=== PATIENT | female | born 1985 | race African-American/Black ===

== ENCOUNTER 2019-05-05 14:43 | Emergency (ER) | payer OTHER ==
[~2019-05-05] VITALS: Ht 157.5 cm; Wt 105.9 kg
[2019-05-05] MEDS ORDERED: cloNIDine HCL 0.1 MG TABLET PO ONE (15:15)
[2019-05-05] MEDS ORDERED: IBUPROFEN 600 MG TABLET. PO ONE (15:15)
[2019-05-05 15:57] VITALS: BP 127/76
--- NOTE | 2019-05-05 15:58 | PHYS DOC ---
Past History Past Medical History: Cancer, Hypertension Additional Past Medical Histor: cervical cancer in june 2018 Past Surgical History: No Surgical History Alcohol Use: None Adult General Chief Complaint Chief Complaint: HYPERTENSION HPI HPI Patient is a 33-year-old female who presents with complaint of elevated blood pressure at home. Patient also complains of headache since yesterday that she rates at a 4-5 out of 10. She denies any visual changes, photophobia, nausea or vomiting. Patient states that she used to be on blood pressure medication but stopped it about a year ago. She states that she had checked her blood pressure at home and it was in the 170s systolic. She denies any chest pain or shortness of breath.[] Review of Systems Review of Systems Constitutional: Denies fever or chills [] Respiratory: Denies cough or shortness of breath [] Cardiovascular: No additional information not addressed in HPI [] Musculoskeletal: Complains of left-sided neck pain [] Integument: Denies rash or skin lesions [] Neurologic: Complains of headache without focal weakness or sensory changes [] Current Medications Current Medications Current Medications Medications (Trade) Dose Ordered Sig/Magnolia Start Time Stop Time Status Last Admin Dose Admin Clonidine HCl (Catapres) 0.2 mg 1X ONCE 05/05/19 15:15 05/05/19 15:16 DC 05/05/19 15:15 0.2 MG Ibuprofen (Motrin) 600 mg 1X ONCE 05/05/19 15:15 05/05/19 15:16 DC 05/05/19 15:15 600 MG Allergies Allergies Allergies Coded Allergies Type Severity Reaction Last Updated Verified No Known Drug Allergies 05/05/19 No Physical Exam Physical Exam Constitutional: Well developed, well nourished, no acute distress, non-toxic appearance. [] HENT: Normocephalic, atraumatic, bilateral external ears normal, oropharynx moist, no oral exudates, nose normal. [] Cardiovascular:Heart rate regular rhythm, no murmur [] Lungs & Thorax: Bilateral breath sounds clear to auscultation [] Extremities: No tenderness, no cyanosis, no clubbing, ROM intact, no edema. [] Neurologic: Alert and oriented X 3, normal motor function, normal sensory function, no focal deficits noted. [] Current Patient Data Vital Signs Vital Signs Date Time Temp Pulse Resp B/P (MAP) Pulse Ox O2 Delivery O2 Flow Rate FiO2 05/05/19 15:15 101 161/103 05/05/19 15:00 97.8 18 99 EKG EKG [] Radiology/Procedures Radiology/Procedures [] Course & Med Decision Making Course & Med Decision Making Pertinent Labs and Imaging studies reviewed. (See chart for details) [] Dragon Disclaimer Dragon Disclaimer This electronic medical record was generated, in whole or in part, using a voice recognition dictation system. Departure Departure: Impression: Primary Impression: Essential hypertension Disposition: HOME, SELF-CARE Condition: STABLE Referrals: SAUMYA MAC MD (PCP) Patient Instructions: Hypertension SABRINA BAUTISTA Jr. DO May 05, 2019 15:58
== END 2019-05-05 16:00 | disposition home or self-care (01) ==
LOC: ER 14:43
DX: I10 Essential (primary) hypertension (principal)
CPT/HCPCS: 99283

== ENCOUNTER 2020-06-17 13:09 | Emergency (ER) | payer OTHER ==
[~2020-06-17] VITALS: Ht 157.5 cm; Wt 104.0 kg
[2020-06-17 13:18] VITALS: BP 117/84
[2020-06-17] MEDS ORDERED: PENI500T PO (14:18)
--- NOTE | 2020-06-17 14:19 | PHYS DOC ---
Past History Past Medical History: Cancer, Hypertension Additional Past Medical Histor: cervical cancer in june 2018 (JIMMY ALVA APRN) Past Surgical History: Cancer Surgery (JIMMY ALVA APRN) Alcohol Use: Rarely (JIMMY ALVA APRN) General Adult EDM: Chief Complaint: NAUSEA/VOMITING/DIARRHEA HPI: HPI: Patient is a 34-year-old female who presents with left-sided dental pain. Patient states that she was seen by a dentist yesterday who placed her on antibiotics. Patient states the dentist prescribed her Flagyl and also Augmentin. Patient states that she took 2 doses of her Flagyl yesterday and was not able to keep it down. Patient denies any known allergy. Patient is con cerned she is allergic to antibiotic would like to be prescribed a different antibiotic to take. Patient denies pain. Patient has facial swelling on left side of her face. Denies shortness of breath, trouble swallowing, fever. Patient denies health history. (JIMMY ALVA APRN) Review of Systems: Review of Systems: Constitutional: Denies fever or chills Eyes: Denies change in visual acuity HENT: Denies nasal congestion or sore throat Respiratory: Denies cough or shortness of breath Cardiovascular: Denies chest pain or edema GI: Denies abdominal pain. Reports nausea, vomiting : Denies dysuria Musculoskeletal: Denies back pain or joint pain Integument: Denies rash, reports left-sided facial swelling Neurologic: Denies headache, focal weakness or sensory changes Endocrine: Denies polyuria or polydipsia Lymphatic: Denies swollen glands Psychiatric: Denies depression or anxiety (JIMMY ALVA APRN) Allergies: Allergies: Allergies Coded Allergies Type Severity Reaction Last Updated Verified No Known Drug Allergies 05/05/19 No (JIMMY ALVA APRN) Physical Exam: PE: Constitutional: Well developed, well nourished, no acute distress, non-toxic appearance. [] HENT: Normocephalic, atraumatic, bilateral external ears normal, oropharynx moist, no oral exudates, nose normal. [] Eyes: PERRLA, EOMI, conjunctiva normal, no discharge. [] Neck: Normal range of motion, no tenderness, supple, no stridor. [] Cardiovascular:Heart rate regular rhythm, no murmur [] Lungs & Thorax: Bilateral breath sounds clear to auscultation [] Abdomen: Bowel sounds normal, soft, no tenderness, no masses, no pulsatile masses. [] Skin: Warm, dry, left-sided facial swelling Back: No tenderness, no CVA tenderness. [] Extremities: No tenderness, no cyanosis, no clubbing, ROM intact, no edema. [] Neurologic: Alert and oriented X 3, normal motor function, normal sensory function, no focal deficits noted. [] Psychologic: Affect normal, judgement normal, mood normal. [] (JIMMY ALVA APRN) Current Patient Data: Vital Signs: Vital Signs Date Time Temp Pulse Resp B/P (MAP) Pulse Ox O2 Delivery O2 Flow Rate FiO2 06/17/20 13:18 98.0 90 16 117/84 (95) 98 Room Air (JIMMY ALVA APRN) EKG: EKG: [] (JIMMY ALVA APRN) Radiology/Procedures: Radiology/Procedures: [] (JIMMY ALVA APRN) Heart Score: C/O Chest Pain: No Risk Factors: Risk Factors: DM, Current or recent (<one month) smoker, HTN, HLP, family history of CAD, obesity. Risk Scores: Score 0 - 3: 2.5% MACE over next 6 weeks - Discharge Home Score 4 - 6: 20.3% MACE over next 6 weeks - Admit for Clinical Observation Score 7 - 10: 72.7% MACE over next 6 weeks - Early Invasive Strategies (JIMMY ALVA APRN) Course & Med Decision Making: Course & Med Decision Making Pertinent Labs and Imaging studies reviewed. (See chart for details) [] Patient is being seen for left-sided facial swelling and dental pain. Patient was placed on Augmentin and Flagyl yesterday. Patient states that she took 2 doses of Flagyl yesterday but is unable to keep either of them down. Patient is concerned that she has an allergy to the antibiotic and would like to be placed on a different antibiotic. Patient is denying pain. Patient denies trouble swallowing, shortness of breath, fevers. Patient given a prescription for Pen VK. Patient instructed to take antibiotic as directed and to avoid taking on an empty stomach. Advised patient to follow-up with her PCP if swelling does not improve. Patient instructed to return to the emergency room with worsening symptoms or concerns. Patient is appreciative and okay with discharge plan. (JIMMY ALVA APRN) Course & Med Decision Making Penicillin based antibiotic allergy deemed unlikely in this case leading to the penicillin prescription as replacement for Augmentin. (ELOINA PRICE DO) Nandaon Disclaimer: Nivia Disclaimer: This electronic medical record was generated, in whole or in part, using a voice recognition dictation system. (JIMMY ALVA APRN) Attending Co-Sign The patient was seen and interviewed as well as examined at the bedside. The chart was reviewed. The case was discussed. Agree with the plan of care. (ELOINA PRICE DO) Departure Departure: Impression: Primary Impression: Left facial swelling Additional Impression: Dental infection Disposition: HOME / SELF CARE / HOMELESS Condition: STABLE Referrals: SAUMYA MAC MD (PCP) Patient Instructions: Dental Pain, [id number] Additional Instructions: You were seen in the emergency room for dental infection and left-sided facial swelling. I am starting you on Penicillin VK to treat infection. Please take as directed and avoid taking on an empty stomach. You can take Tylenol or ibuprofen for discomfort. Please follow-up with your PCP if symptoms are not improving. Return to the emergency room with worsening symptoms or concerns. EMERGENCY DEPARTMENT GENERAL DISCHARGE INSTRUCTIONS Thank you for coming to [facility] (ED) today and trusting us with you care. We trust that you had a positivie experience in our Emergency Department. If you wish to speak to the department management, you may call the director at [phone]. YOUR FOLLOW UP INSTRUCTIONS ARE FOLLOWS: 1. Do you have a private Doctor? If you do not have a private doctor, please ask for a resource list of physicians or clinics that may be able to assist you with follow up care. 2. The Emergency Physician has interpreted your x-rays. The X-Ray specialist will also review them. If there is a change in the findings, you will be notified in 48 hours when at all possible. 3. A lab test or culture has been done, your results will be reviewed and you will be notified if you need a change in treatment. ADDITIONAL INSTRUCTIONS AND INFORMATION: 1. Your care today has been supervised by a physician who is specially trained in emergency care. Many problems require more than one evaluation for a complete diagnosis and treatment. We recommend that you schedule your follow up appointment as recommended to ensure complete treatment of you illness or injury. If you are unable to obtain follow up care and continue to have a problem, or if your condition worsens, we recommend that you return to the ED. 2. We are not able to safely determine your condition over the phone nor are we able to give sound medical advice over the phone. For these safety reasons, if you call for medical advice we will ask you to come to the ED for further evaluation. 3. If you have any questions regarding these discharge instructions please call the ED at [phone]. SAFETY INFORMATION: In the interest of safety, wellness, and injury prevention; we encourage you to wear your sealbelt, if you smoke; quite smoking, and we encourage family to use a protective helmet for bicycling and other sporting events that present an increased risk for head injury. IF YOUR SYMPTOMS WORSEN OR NEW SYMPTOMS DEVELOP, OR YOU HAVE CONCERNS ABOUT YOUR CONDITION; OR IF YOUR CONDITION WORSENS WHILE YOU ARE WAITING FOR YOUR FOLLOW UP APPOINTMENT; EITHER CONTACT YOUR PRIMARY CARE DOCTOR, THE PHYSICIAN WHOSE NAME AND NUMBER YOU WERE GIVEN, OR RETURN TO THE ED IMMEDIATELY. Scripts Penicillin V Potassium (PENICILLIN V POTASSIUM) 500 Mg Tablet 1 TAB PO QID for infection for 7 Days, #28 TAB Take one tablet by mouth, four times a day, for 7 days Prov: JIMMY ALVA APRN 06/17/20 JIMMY ALVA APRN June 17, 2020 14:19 ELOINA PRICE DO June 20, 2020 08:27
== END 2020-06-17 14:26 | disposition home or self-care (01) ==
LOC: ER 13:19
DX: K04.7 Periapical abscess without sinus (principal); R22.0 Localized swelling, mass and lump, head; R11.2 Nausea with vomiting, unspecified; I10 Essential (primary) hypertension
CPT/HCPCS: 99283